=== PATIENT | female | born 1945 | race Caucasian/White ===

== ENCOUNTER 2016-10-02 17:08 | Emergency (ER) | payer MEDICARE, OTHER ==
[~2016-10-02 17:08] MED LIST: ASPIR LOW81 MG PO; CALCIUM 600 MG-1 TAB PO; DAILY MULTIPLE1 T18 PO; ESTRADIOL VAG42.5 GM VG; FISH OIL500 M1 PO; LOPRESSOR 225 MG/TAB PO; LOVASTATIN10 M1 PO; PROBIOTIC1 EAC1 PO; SUPER B COMPLE150 MG PO
[2016-10-02] MEDS ORDERED: GUAIFEN/CODEIN120 ML PO (18:18)
== END 2016-10-02 18:25 | disposition home or self-care (01) ==
LOC: ED 17:08
DX: J06.9 Acute upper respiratory infection, unspecified (principal); J40 Bronchitis, not specified as acute or chronic

== ENCOUNTER 2018-02-20 07:32 | Emergency (ER) | payer MEDICARE, OTHER ==
[~2018-02-20] VITALS: Ht 162.6 cm; Wt 65.0 kg
[~2018-02-20 07:32] MED LIST changes: +GUAIFEN/CODEIN120 ML PO
[2018-02-20] MEDS ORDERED: ALEVE220 M1 PO (07:45)
[2018-02-20] MEDS ORDERED: PRILOSEC 20MG20 MG PO (08:54)
[2018-02-20] MEDS ORDERED: NORCO 325 MG-51 TA1 PO (08:54)
[2018-02-20 09:08] VITALS: BP 140/64
== END 2018-02-20 09:04 | disposition home or self-care (01) ==
LOC: ED 07:32
DX: S43.401A Unspecified sprain of right shoulder joint, initial encounter (principal); S20.211A Contusion of right front wall of thorax, initial encounter; W06.XXXA Fall from bed, initial encounter; Y92.003 Bedroom of unspecified non-institutional (private) residence as the place of occurrence of the external cause; I10 Essential (primary) hypertension; Z79.82 Long term (current) use of aspirin; Z79.899 Other long term (current) drug therapy

== ENCOUNTER 2018-04-20 11:30 | Outpatient (RCR) | payer MEDICARE, OTHER ==
[~2018-04-20 11:30] MED LIST changes: +ALEVE220 M1 PO; +NORCO 325 MG-51 TA1 PO; +PRILOSEC 20MG20 MG PO
== END 2018-04-20 12:00 | disposition home or self-care (01) ==
LOC: PT 11:30
DX: S43.51XD Sprain of right acromioclavicular joint, subsequent encounter (principal); S46.011D Strain of muscle(s) and tendon(s) of the rotator cuff of right shoulder, subsequent encounter; W06.XXXD Fall from bed, subsequent encounter
CPT/HCPCS: G8985-GP